=== PATIENT | male | born 1950 | race African-American/Black ===

== ENCOUNTER 2024-01-07 23:13 | Inpatient (IN) | payer OTHER ==
[~2024-01-07] VITALS: Ht 172.7 cm; Wt 64.9 kg
[2024-01-07] MEDS: SODIUM CHLORIDE 0.9% 1,000 ML IV ONE (23:31)
[2024-01-07] MEDS: CEFEPIME 2GM/50ML NS 50 ML IV ONE (23:39)
[2024-01-07] MEDS: ONDANSETRON HCL 4 MG/2 ML VIAL IV ONE (23:39)
[2024-01-07] MEDS: IBUPROFEN 600 MG TAB PO ONE (23:39)
[2024-01-07] MEDS: ACETAMINOPHEN 500 MG TAB PO ONE (23:40)
[2024-01-07 23:43] LABS: Basophils # (auto) 0 10 ^3/uL (0-0.2); Basophils % (auto) 0.3 % (0.0-2.0); Eosinophils # (auto) 0 10 ^3/uL (0-0.8); Eosinophils % (auto) 0.1 % (0.0-7.0); Hematocrit 42.7 % (41.0-53.0); Hemoglobin 14.3 g/dL (13.5-17.5); Lymphocytes # (auto) 0.9 10 ^3/uL (0.4-5.4); Lymphocytes % (auto) 11.2 % (10.0-50.0); Mean Corpuscular Hemoglobin 31.6 pg (28.0-32.0); Mean Corpuscular Hgb Conc. 33.5 g/dL (32.0-36.0); Mean Corpuscular Volume 94.3 fL (80.0-100.0); Monocytes # (auto) 0.1 10 ^3/uL (0-1.3); Monocytes % (auto) 1.2 % (0.0-12.0); Neutrophils # (auto) 7.1 10 ^3/uL (1.6-8.6); Neutrophils % (auto) 87.2 % (37.0-80.0); Nucleated Red Blood Cells % 0.1 %; Red Blood Cells 4.53 10^6/uL (4.5-5.90); Red Cell Distribution Width 14.4 % (11.8-14.3); White Blood Cell 8.1 10^3/uL (4.4-10.8)
[2024-01-07 23:56] VITALS: PULSE 115; RESP 25; O2SAT 94
[2024-01-07 23:56] LABS: Alanine Aminotransferase 14 U/L (7-40); Alkaline Phosphatase 116 U/L (46-116); Anion Gap 15 (5-15); Aspartate Aminotransferase 23 U/L (13-40); BUN/Creatinine Ratio 11.7 (10.0-20.0); Blood Urea Nitrogen 19 mg/dL (9-23); Carbon Dioxide 21 mmol/L (20-30); Chloride 104 mmol/L (98-107); Glucose 144 mg/dL (74-106); Lipase 32 U/L (12-53); Potassium 3.8 mmol/L (3.5-5.1); Sodium 140 mmol/L (136-145)
[2024-01-07 23:57] LABS: Bilirubin, Total 2.1 mg/dL (0.2-1.0); Total Protein 7.5 g/dL (5.7-8.2)
[2024-01-08 00:09] LABS: Lactic Acid w/Reflex 3.4 mmol/L (0.4-2.0)
[2024-01-08] MEDS: SODIUM CHLORIDE 0.9% 1,000 ML IV ONE (01:55)
[2024-01-08] MEDS: MORPHINE SULFATE 4 MG/ML SYR/VIAL IV ONE (02:00)
[2024-01-08] MEDS ORDERED: VANCOMYCIN PER PHARMACY 0 MG IV SCH (02:15)
[2024-01-08] MEDS ORDERED: NITROGLYCERIN 0.4 MG SL TAB SL PRN (02:15)
[2024-01-08] MEDS ORDERED: DOCUSATE SOD 100 MG CAP PO PRN (02:15)
[2024-01-08] MEDS ORDERED: ONDANSETRON HCL 4 MG/2 ML VIAL IV PRN (02:15)
[2024-01-08] MEDS ORDERED: MORPHINE SULFATE INJ 2 MG/ml SYRG IV PRN (02:15)
[2024-01-08 02:51] LABS: COVID19 ANTIGEN SOFIA FIA NEGATIVE (NEGATIVE); Rapid Influenza A Negative (Negative); Rapid Influenza B Negative (Negative)
[2024-01-08] MEDS: SODIUM CHLORIDE 0.9% 1,000 ML IV SCH (03:02)
[2024-01-08] MEDS: VANCOMYCIN 1GM/200ML 200 ML IV ONE (03:10)
[2024-01-08 04:05] LABS: Urine Bacteria None Seen /hpf (None Seen)
[2024-01-08 04:30] LABS: Basophils # (auto) 0.1 10 ^3/uL (0-0.2); Basophils % (auto) 0.5 % (0.0-2.0); Chloride 108 mmol/L (98-107); Eosinophils # (auto) 0 10 ^3/uL (0-0.8); Hematocrit 39.3 % (41.0-53.0); Hemoglobin 13.1 g/dL (13.5-17.5); Lymphocytes # (auto) 0.7 10 ^3/uL (0.4-5.4); Lymphocytes % (auto) 5.2 % (10.0-50.0); Mean Corpuscular Hemoglobin 31.2 pg (28.0-32.0); Mean Corpuscular Hgb Conc. 33.3 g/dL (32.0-36.0); Mean Corpuscular Volume 93.5 fL (80.0-100.0); Monocytes # (auto) 0.5 10 ^3/uL (0-1.3); Monocytes % (auto) 3.8 % (0.0-12.0); Neutrophils # (auto) 11.8 10 ^3/uL (1.6-8.6); Neutrophils % (auto) 90.5 % (37.0-80.0); Potassium 3.5 mmol/L (3.5-5.1); Red Cell Distribution Width 14.2 % (11.8-14.3); Sodium 139 mmol/L (136-145); White Blood Cell 13.1 10^3/uL (4.4-10.8)
[2024-01-08 04:31] LABS: Anion Gap 10 (5-15); Calcium 8.4 mg/dL (8.7-10.4); Carbon Dioxide 21 mmol/L (20-30)
[2024-01-08 04:31] LABS: Urine Blood TRACE /uL (Negative); Urine Clarity Clear (Clear); Urine Color Yellow (Yellow); Urine Hyaline Cast FEW /lpf (0 - 2); Urine Mucus FEW (None Seen); Urine Protein, UAD 1+ (Negative); Urine Specific Gravity 1.018 (1.001-1.035); Urine Urobilinogen Normal (Negative); Urine WBC 67 /hpf (0 - 3); Urine WBC Clumps PRESENT /hpf (None Seen); Urine pH 5.5 (5.0-9.0)
[2024-01-08 04:36] LABS: BUN/Creatinine Ratio 10.9 (10.0-20.0); Blood Urea Nitrogen 15 mg/dL (9-23); Glucose 101 mg/dL (74-106)
[2024-01-08] MEDS: CEFEPIME 1GM/ 50ML 50 ML IV SCH (06:26)
[2024-01-08] MEDS: HYDROcodone-ACET 5/325MG TAB PO PRN (06:32)
[2024-01-08 06:34] VITALS: BP 124/82; PULSE 68; PULSE 72; RESP 20; TEMP 98.2; O2SAT 0
[2024-01-08 08:00] VITALS: PULSE 79; PULSE 80; RESP 20; O2SAT 100
[2024-01-08 08:31] VITALS: BP 117/59; PULSE 79; RESP 20; TEMP 98.3; O2SAT 100
[2024-01-08] MEDS: PANTOPRAZOLE 40 MG/10 ML VIAL INJ IV SCH (08:38)
[2024-01-08] MEDS: ENOXAPARIN SOD 40 MG/0.4 ML SYRINGE SC SCH (08:39)
[2024-01-08] MEDS ORDERED: VANCOMYCIN 1GM/200ML 200 ML IV SCH (10:15)
[2024-01-08 12:19] VITALS: BP 103/53; PULSE 71; RESP 71; TEMP 98.1; O2SAT 99
[2024-01-08] MEDS: ACETAMINOPHEN 325 MG TAB PO PRN (13:53)
[2024-01-08] MEDS ORDERED: HYDR25TA5 PO (15:45)
[2024-01-08 16:49] VITALS: BP 107/61; PULSE 78; RESP 16; TEMP 98.3; O2SAT 99
[2024-01-08] MEDS: VANCOMYCIN 1GM/200ML 200 ML IV SCH (18:08)
[2024-01-08 21:00] VITALS: BP 108/56; PULSE 72; RESP 16; TEMP 99.1; O2SAT 100
[2024-01-09] VITALS (9 sets, daily range): BP systolic 104–128; BP diastolic 53–77; PULSE 79–88; RESP 15–17; TEMP 97.7–99; O2SAT 97–100
[2024-01-09 05:26] LABS: Basophils # (auto) 0 10 ^3/uL (0-0.2); Basophils % (auto) 0.4 % (0.0-2.0); Eosinophils # (auto) 0.1 10 ^3/uL (0-0.8); Eosinophils % (auto) 1.1 % (0.0-7.0); Hematocrit 38.5 % (41.0-53.0); Hemoglobin 13.7 g/dL (13.5-17.5); Lymphocytes # (auto) 0.7 10 ^3/uL (0.4-5.4); Lymphocytes % (auto) 8.2 % (10.0-50.0); Mean Corpuscular Hemoglobin 32.8 pg (28.0-32.0); Mean Corpuscular Hgb Conc. 35.6 g/dL (32.0-36.0); Mean Corpuscular Volume 92.2 fL (80.0-100.0); Monocytes # (auto) 0.5 10 ^3/uL (0-1.3); Monocytes % (auto) 5.4 % (0.0-12.0); Neutrophils # (auto) 7.6 10 ^3/uL (1.6-8.6); Neutrophils % (auto) 84.9 % (37.0-80.0); Red Blood Cells 4.18 10^6/uL (4.5-5.90); Red Cell Distribution Width 14.6 % (11.8-14.3); White Blood Cell 8.9 10^3/uL (4.4-10.8)
[2024-01-09 05:30] LABS: Anion Gap 7 (5-15); Carbon Dioxide 23 mmol/L (20-30); Chloride 107 mmol/L (98-107); Potassium 3.7 mmol/L (3.5-5.1); Sodium 137 mmol/L (136-145)
[2024-01-09 05:36] LABS: BUN/Creatinine Ratio 14.7 (10.0-20.0); Blood Urea Nitrogen 16 mg/dL (9-23); Glucose 105 mg/dL (74-106)
[2024-01-10] VITALS (7 sets, daily range): BP systolic 124–138; BP diastolic 67–75; PULSE 68–93; RESP 16–18; TEMP 97.6–98.9; O2SAT 94–100
[2024-01-10 05:37] LABS: Basophils # (auto) 0 10 ^3/uL (0-0.2); Basophils % (auto) 0.4 % (0.0-2.0); Eosinophils # (auto) 0.1 10 ^3/uL (0-0.8); Eosinophils % (auto) 1.8 % (0.0-7.0); Hematocrit 37.6 % (41.0-53.0); Hemoglobin 12.9 g/dL (13.5-17.5); Lymphocytes # (auto) 0.7 10 ^3/uL (0.4-5.4); Lymphocytes % (auto) 9.5 % (10.0-50.0); Mean Corpuscular Hemoglobin 31.3 pg (28.0-32.0); Mean Corpuscular Hgb Conc. 34.3 g/dL (32.0-36.0); Mean Corpuscular Volume 91.2 fL (80.0-100.0); Monocytes # (auto) 0.4 10 ^3/uL (0-1.3); Monocytes % (auto) 6.1 % (0.0-12.0); Neutrophils % (auto) 82.2 % (37.0-80.0); Red Blood Cells 4.12 10^6/uL (4.5-5.90); Red Cell Distribution Width 14.4 % (11.8-14.3); White Blood Cell 7.3 10^3/uL (4.4-10.8)
[2024-01-10 05:46] LABS: Chloride 105 mmol/L (98-107); Potassium 3.5 mmol/L (3.5-5.1); Sodium 138 mmol/L (136-145)
[2024-01-10 05:47] LABS: Anion Gap 11 (5-15); Calcium 9.2 mg/dL (8.7-10.4); Carbon Dioxide 22 mmol/L (20-30)
[2024-01-10 05:52] LABS: BUN/Creatinine Ratio 11.5 (10.0-20.0); Blood Urea Nitrogen 12 mg/dL (9-23); Glucose 92 mg/dL (74-106)
[2024-01-10] MEDS: VANCOMYCIN 1GM/200ML 200 ML IV SCH (17:21)
[2024-01-11 01:00] VITALS: BP 118/68; PULSE 71; RESP 16; TEMP 98.8; O2SAT 99
[2024-01-11 05:00] VITALS: BP 124/64; PULSE 68; RESP 16; TEMP 98.6; O2SAT 99
[2024-01-11 07:26] LABS: Basophils # (auto) 0.1 10 ^3/uL (0-0.2); Basophils % (auto) 1.2 % (0.0-2.0); Eosinophils # (auto) 0.1 10 ^3/uL (0-0.8); Hematocrit 38.8 % (41.0-53.0); Lymphocytes # (auto) 1.1 10 ^3/uL (0.4-5.4); Lymphocytes % (auto) 19.2 % (10.0-50.0); Mean Corpuscular Hemoglobin 30.9 pg (28.0-32.0); Mean Corpuscular Hgb Conc. 33.5 g/dL (32.0-36.0); Mean Corpuscular Volume 92.2 fL (80.0-100.0); Monocytes # (auto) 0.6 10 ^3/uL (0-1.3); Monocytes % (auto) 10.9 % (0.0-12.0); Neutrophils # (auto) 3.8 10 ^3/uL (1.6-8.6); Neutrophils % (auto) 66.7 % (37.0-80.0); Nucleated Red Blood Cells % 0.1 %; Red Blood Cells 4.21 10^6/uL (4.5-5.90); White Blood Cell 5.7 10^3/uL (4.4-10.8)
[2024-01-11 07:29] LABS: Calcium 9.3 mg/dL (8.7-10.4); Chloride 106 mmol/L (98-107); Potassium 3.4 mmol/L (3.5-5.1); Sodium 138 mmol/L (136-145)
[2024-01-11 07:30] LABS: Anion Gap 8 (5-15); Carbon Dioxide 24 mmol/L (20-30)
[2024-01-11 07:35] LABS: BUN/Creatinine Ratio 10.5 (10.0-20.0); Blood Urea Nitrogen 10 mg/dL (9-23); Glucose 107 mg/dL (74-106)
[2024-01-11 08:00] VITALS: PULSE 69
[2024-01-11 09:00] VITALS: BP 116/60; PULSE 75; RESP 17; TEMP 99; O2SAT 97
[2024-01-11 13:00] VITALS: BP 136/67; PULSE 71; RESP 17; TEMP 97.9; O2SAT 98
[2024-01-11] MEDS ORDERED: CEPH500C PO (15:36)
[2024-01-11 16:15] VITALS: TEMP 36.6
[2024-01-12] MEDS ORDERED: cefTRIAXone 2GM/50ML D5W 50 ML IV SCH (10:00)
== END 2024-01-11 16:55 | disposition home health service (06) | DRG 871 ==
LOC: ER 23:13 → TELE 01-08 02:08 → TELE-CENTR 01-08 05:46
PROVIDERS: ADMIT Nurse Practitioner Family; ATTEND Internal Medicine
DX: A41.50 Gram-negative sepsis, unspecified (principal); G92.8 Other toxic encephalopathy; N17.0 Acute kidney failure with tubular necrosis; N39.0 Urinary tract infection, site not specified; E87.20 Acidosis, unspecified; F41.9 Anxiety disorder, unspecified; I10 Essential (primary) hypertension; G43.909 Migraine, unspecified, not intractable, without status migrainosus; Z82.49 Family history of ischemic heart disease and other diseases of the circulatory system; Z79.899 Other long term (current) drug therapy
CPT/HCPCS: 36415; 70450; 71045; 80048; 80053; 80202; 81001; 83605; 83690; 84484; 85025; 87040; 87077; 87086; 87186; 87426; 87804; 93005; G0378; J0692; J2405; J2470